=== PATIENT | female | born 1980 | race American Indian/Alaskan Native ===

== ENCOUNTER 2017-06-04 07:31 | Emergency (ER) | payer OTHER ==
[2017-06-04 08:04] VITALS: BP 122/83
--- NOTE | 2017-06-04 10:10 | Emergency Department Report ---
"Entered by CARLYN GEE, acting as scribe for JESSE STOUT PA. Upper Extremity - HPI Chief Complaint: Extremity Injury, Upper Stated Complaint: RT SHOULDER PAIN Time Seen by Provider: 06/04/17 09:41 Upper Extremity: Right Shoulder (pain and stiffness) Occurred When: >5 Days (1 month) Mechanism: Unsure Severity: severe (10/10) Symptoms: Yes Pain with Movement (right shoulder), No Deformity, No Limited Range of Movement, No Numbness, No Weakness, No Swelling, No Bruising/Ecchymosis , No Laceration or Abrasion Other History: 37 y/o female nontoxic, well nourished in appearance, no acute signs of distress presents with sharp, constant, 10/10 right shoulder pain that started 1 month ago and radiates down the right arm and is exacerbated by lifting objects. Pt denies injury, numbness, tingling, SOB or chest pain. She states doing heavy lifting while at work. ED Review of Systems ROS: Stated complaint: RT SHOULDER PAIN Other details as noted in HPI Comment: All other systems reviewed and negative Constitutional: denies: chills, fever Respiratory: denies: cough, shortness of breath Cardiovascular: denies: chest pain Gastrointestinal: denies: abdominal pain, nausea, vomiting Skin: denies: rash Neurological: denies: headache, numbness, paresthesias, confusion ED Past Medical Hx - Past Medical History Previous Medical History?: No - Surgical History Past Surgical History?: Yes Additional Surgical History: c-sections - Family History Family history: no significant - Social History Smoking Status: Never Smoker Substance Use Type: Alcohol Other Social History: lives with family - Medications Home Medications: Home Medications Medication Instructions Recorded Confirmed Last Taken Type Naproxen [Naprosyn] 500 mg PO BID PRN #10 tablet 06/04/17 Unknown Rx Upper Extremity Exam - Exam General: Vital signs noted. No distress. Alert and acting appropriately. Head: Normocephalic, atraumatic Nose: Normal external appearance, no drainage. Maxillary and frontal sinuses nontender to palpation Neck: Supple, no C-spine tenderness, no tracheal deviation. Nontender to palpation. no adenopathy. Back: Right deltoid upper back tenderness at posterior shoulder, no edema, no neurovascular comprimise Lungs: Clear to auscultation bilaterally, no rhonchi, wheezes, or rales. Normal work of breathing. No use of accessory muscles Cardiovascular: S1-S2, regular rate, regular rhythm. No murmurs. Skin: Clean, dry, and intact with no rash and no lesions Psych: Normal mood and behavior Head and Torso: No HEENT Abnormality, No Neck Tenderness, No Chest/Lungs Abnormality, No Abdominal Tenderness, No Back Tenderness Shoulder Exam: Yes Shoulder Tenderness (posterior rt shoulder), Yes Normal Range of Motion in Shoulder (but painful to raise rt arm over head. Pain in posterir rt shoulder), No Clavicle Tenderness, No Shoulder Deformity, No AC Joint Tenderness Arm Exam: No Arm/Humerus Tenderness, No Arm Deformity Elbow: Yes Normal Range of Motion in Elbow, No Elbow Tenderness, No Elbow Deformity Forearm: No Forearm Tenderness, No Forearm Deformity, No Pain with Pronation, No Pain with Supination Wrist: Yes Normal ROM in Wrist, No Wrist Tenderness, No Wrist Deformity, No Snuffbox Tenderness, No Pain with Axial Thumb Compression Hand: Yes Normal ROM in Digit(s), No Hand Tenderness, No Hand Deformity, No Digit Tenderness, No Digit(s) Deformity, No Tendon Dysfunction CMS Exam: Yes Broken Skin, Yes Normal Distal Pulses, Yes Normal Capillary Refill , Yes Normal Distal Sensation ED Course Vital Signs 06/04/17 08:01 Temperature 98.5 F Pulse Rate 78 Respiratory 16 Rate Blood Pressure 122/83 O2 Sat by Pulse 100 Oximetry - Reevaluation(s) Reevaluation #1: 06/04/17 10:01 stable throughout ed course ED Medical Decision Making - Medical Decision Making MDM: ED course Patient here reports that she's been having pain to her right shoulder over 1 month from repetitive lifting at work. She reports pain in posterior right shoulder and it's difficult to raise or move her right shoulder without having pain. Denies any numbness or tingling or paresthesia.| Exam reveals patient with pain when she raises her right upper extremity overhead and tenderness to palpate right posterior shoulder. Patient is neurologically intact. Discussed with patient that she will need to follow up with orthopedic doctor for MRI as she did not have any blunt injury and there are no need for having an x-ray because x-ray on the looks of bone. Also discussed with her diagnosis and treatment plan and she'll need to follow-up with orthopedic doctor. Patient voiced understanding. Diagnosis: Arthralgia right shoulder Medication: Prescription given for naproxen. Patient discharged home in stable condition to follow up with orthopedic doctor. Critical care attestation.: If time is entered above; I have spent that time in minutes in the direct care of this critically ill patient, excluding procedure time. ED Disposition Clinical Impression: Arthralgia of right shoulder region Disposition: DC- TO HOME OR SELFCARE Is pt being admited?: No Does the pt Need Aspirin: No Condition: Stable Instructions: Arthralgia (ED) Additional Instructions: follow-up with orthopedic doctor as instructed Naproxen as instructed Prescriptions: Naproxen [Naprosyn] 500 mg PO BID PRN #10 tablet PRN Reason: Pain Referrals: ARIEL PIERSON MD [Staff Physician] - 3-5 Days Forms: Work/School Release Form(ED) This documentation as recorded by the MARLEN conroy RYAN,accurately reflects the service I personally performed and the decisions made by me,JESSE STOUT PA."
== END 2017-06-04 10:29 | disposition home or self-care (01) ==
LOC: ED 07:31
DX: M25.511 Pain in right shoulder (principal)
CPT/HCPCS: 99282